=== PATIENT | female | born 1975 | race Caucasian/White ===

== ENCOUNTER 2023-06-12 07:55 | Outpatient (OUT) | payer BC, SELFPAY ==
--- NOTE | 2023-06-12 07:57 | MM_ITS ---
Patient Name: DAVID AGUDELO MR#: [id number] : 1975 Exam Date: 06/12/2023 Ordering Doctor: DR RAFA VERA RADIOLOGY REPORT PROCEDURE: MM TOMOSYNTHESIS SCREENING BI COMPARISON: MG MAMM SCREEN 3D ANTONIO CAD, 05/07/2022. MG MAMM SCREEN 3D ANTONIO CAD, 05/01/2021. INDICATIONS: Screening Calculator Name NCI Breast Cancer Risk Assessment Tool 5 Year Breast Cancer Risk Not Reported. Lifetime Breast Cancer Risk Not Reported. Personal Breast Cancer No Personal Ovarian Cancer No Treatments None Family Cancers None LOCATION: [facility] BREAST COMPOSITION: Heterogeneously dense,which may obscure small masses. FINDINGS: DIAGNOSTIC CATEGORY 1--NEGATIVE. NO CHANGE FROM COMPARISON ASSESSMENT. Scattered benign-appearing lymph nodes are present. RIGHT BREAST: No significant suspicious finding. LEFT BREAST: No significant suspicious finding. RECOMMENDATIONS: ROUTINE MAMMOGRAM AND CLINICAL EVALUATION IN 12 MONTHS. PLEASE NOTE: A NORMAL MAMMOGRAM DOES NOT EXCLUDE THE POSSIBILITY OF BREAST CANCER. A CLINICALLY SUSPICIOUS PALPABLE LUMP SHOULD BE BIOPSIED. Dictated by: Akira Waddell MD on 06/12/2023 at 11:14 Approved by: Akira Waddell MD on 06/12/2023 at 11:15
== END 2023-06-12 07:56 | disposition home or self-care (01) ==
LOC: MAMMO 07:55
PROVIDERS: PCP Family Medicine; Visit Provider Obstetrics & Gynecology
DX: Z12.31 Encounter for screening mammogram for malignant neoplasm of breast (principal)
CPT/HCPCS: 77063; 77067

== ENCOUNTER 2024-07-27 07:59 | Outpatient (OUT) | payer BC, SELFPAY ==
--- NOTE | 2024-07-27 08:03 | MM_ITS ---
Patient Name: DAVID AGUDELO MR#: [id number] : 1975 Exam Date: 07/27/2024 Ordering Doctor: DR RAFA VERA RADIOLOGY REPORT PROCEDURE: MM TOMOSYNTHESIS SCREENING BI COMPARISON: MM TOMOSYNTHESIS SCREENING BI, 06/12/2023. MG MAMM SCREEN 3D ANTONIO CAD, 05/07/2022. MG MAMM SCREEN 3D ANTONIO CAD, 05/01/2021. MG MAMM SCREEN ANTONIO W CAD, 02/08/2018. INDICATIONS: Screening Calculator Name NCI Breast Cancer Risk Assessment Tool 5 Year Breast Cancer Risk Not Reported. Lifetime Breast Cancer Risk Not Reported. Personal Breast Cancer No Personal Ovarian Cancer No Treatments None Family Cancers None LOCATION: [facility] BREAST COMPOSITION: The breasts are heterogeneously dense,which may obscure small masses. FINDINGS: A focal asymmetry right breast in the anterior depth. Focal asymmetry of the left breast study posterior depth. DIAGNOSTIC CATEGORY 0--INCOMPLETE: NEED ADDITIONAL IMAGING EVALUATION. RECOMMENDATIONS: ADDITIONAL MAMMOGRAPHIC VIEWS REQUIRED: BILATERAL BREASTS - spot compression ULTRASOUND: BILATERAL BREASTS PLEASE NOTE: A NORMAL MAMMOGRAM DOES NOT EXCLUDE THE POSSIBILITY OF BREAST CANCER. A CLINICALLY SUSPICIOUS PALPABLE LUMP SHOULD BE BIOPSIED. Dictated by: Genaro Mccracken DO on 07/28/2024 at 07:44 Approved by: Genaro Mccracken DO on 07/28/2024 at 07:48
--- OUTSIDE RECORDS SUMMARY | 2024-07-27 08:17 | XMS_ITS | CCD ---
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 Name Role Phone Glenda Stewart Unavailable JOSI CALABRESE Attending Unavailable PAT, DR MCARTHUR Primary Care Unavailable KARASIK, DR KAPOOR Admitting Unavailable KARASIK, DR KAPOOR Consulting Unavailable KARASIK, DR KAPOOR Attending Unavailable ZIEBER, DR LEE Mckeon Consulting Unavailable PAT, DR MCARTHUR Primary Care Unavailable KARASIK, DR KAPOOR Admitting Unavailable KARASIK, DR KAPOOR Consulting Unavailable KARASIK, DR KAPOOR Attending Unavailable NO FAMILY, PHYSICIAN Primary Care Provider Unava ilable Hector Bui DO Attending Provider Hector Bui Jr Attending Unavailable Hector Bui Jr Admitting Unavailable NO FAMILY, PHYSICIAN Primary Care Unavailable RAFA VERA Attending Unavailable BRANDON CRUZ Attending Unavailable Unavailable Unavailable Unavailable Allergies Allergy Classification Reported Allergen(s) Allergy Type Date of Onset Reaction(s) Facility (1 source) Chg scrub; Translations: [Chg scrub] Propensity to adverse reactions (disorder) [facility] Repository (1 source) Steri-Strips; Translations: [Steri-Strips] Propensity to adverse reactions (disorder) [facility] Repository Medications Current Medications Medication Drug Class(es) Dates Sig (Normalized) Sig (Original) Ethinyl Estradiol / norgestimate (1 source) Progestin, Estrogen Ortho Tri-Cy clen Lo Active Loratadine (1 source) Claritin Active nitrofurantoin, macrocrystals 25 mg / nitrofurantoin, monohydrate 75 mg oral capsule (1 source) Nitrofuran Antibacterial Start: 08-03-2021 take 1 capsule by mouth every twelve hours Macrobid 100 MG 1 cap(s) Orally bid for 5 day(s) Aug, Active phenazopyridine hydrochloride 200 mg oral tablet (1 source) Start: 08-03-2021 take 1 tablet by mouth every eight hours Pyridium 200 MG 1 tablet after meals Orally Three times a day for 2 day(s) Aug, Active Completed/Discontinued Medications Medication Drug Class(es) Dates Sig (Normalized) Sig (Original) doxycycline monohydrate 100 mg oral capsule (1 source) Tetracycline-class Drug Start: 11-08-2019 take 1 capsule by mouth every twelve hours Doxycycline Monohydrate 100 MG 1 capsule Orally every 12 hrs for 7 days Nov, Not-Taking Triamcinolone (1 source) Corticosteroid Start: 04-28-2020 KENALOG - 10 mg Apr, 40 mg Problems Active Problems Problem Classification Problem Date Documented Date Episodic/Chronic Immunizations and screening for infectious disease (1 source) Encounter for screening for human papillomavirus (HPV); Translations: [ENC SCREENING HUMAN PAPILLOMAVIRUS] Onset: 05-11-2022 Episodic Other screening for suspected conditions (not mental disorders or infectious disease) (8 sources) Encounter for screening for malignant neoplasm of cervix; Translations: [Encounter for screening mammogram for malignant neoplasm of breast] Onset: 05-07-2022 Episodic Other upper respiratory infections (2 sources) Acute upper respiratory infection; Translations: [Pharyngotonsillitis] Episodic Past or Other Problems Problem Classification Problem Date Documented Da te Episodic/Chronic Genitourinary symptoms and ill-defined conditions (2 sources) Dysuria; Translations: [Hematuria, unspecified] Onset: 08-03-2021 Resolved: 08-03-2021 Episodic Urinary tract infections (1 source) Urinary tract infection, site not specified Onset: 08-03-2021 Resolved: 08-03-2021 Episodic Results Test Name Value Interpretation Reference Range Facility X-ray reportOrdered By: Ra Palafox on 05-19-2024 Study report [facility] [address] [address] XRay Report Signed Patient: David Acosta MR#: [id number] : 1975 Acct:[id number] Age/Sex: 48 / F ADM Date: 5 Loc: CO Room: Type: REG REF Attending Dr: Hector Bui Jr DO Copies to: Hector Bui DO~ Ordering Provider: Hector Bui DO Date of Service: 05/19/24 XR/XR chest 2V*: emp phys Chest 2 views CLINICAL HISTORY: Employment physical. COMPARISON: Chest 07/23/2021 FINDINGS: Heart normal size. Lungs are clear. No free air. XR/XR chest 2V* IMPRESSION: NO ACUTE CARDIOPULMONARY ABNORMALITY. Impression dictated by: Simon Palafox Jr., D.OObdulia05/19/2024 3:31 PM Dictation Location: RADIO-PC-22 Transcribed By: [facility] 05/19/24 153 Dictated By: Simon Palafox Jr, DO 05/19/241530 Signed By: 05/19/24 1531 [facility] XR chest 2V*on 05-19-2024 XR chest 2V* [facility] [address] XRay Report Signed Patient: David Acosta MR#: [id number] : 1975 Acct:[id number] Age/Sex: 48 / F ADM Date: 05/19/24 Loc: CO Room: Type: REG REF Attending Dr: Hector Bui Jr DO Copies to: Hector Bui DO Ordering Provider: Hector Bui DO Date of Service: 05/19/24 XR/XR chest 2V*: emp phys Chest 2 views CLINICAL HISTORY: Employment physical. COMPARISON: Chest 07/23/2021 FINDINGS: Heart normal size. Lungs are clear. No free air. XR/XR chest 2V* IMPRESSION: NO ACUTE CARDIOPULMONARY ABNORMALITY. Impression dictated by: Tanner Vickers Jr..O.05/19/2024 3:31 PM Dictation Location: RADIO-PC-22 Transcribed By: [facility] 05/19/24 153 Dictated By: Simon Palafox Jr, DO 05/19/24 153 Signed By: 05/19/24 1531 Normal [facility] PAP ACOG PANEL 2: 30 to 65on 05-15-2022 . . Normal [facility] Comment on above: Result Comment: Perf ormed at: WB Performed By: #### [id number] #### [facility] [address] [place] [address] Dr. Manda Shabazz Age Gdln ACOG Testing 30-65 [facility] Comment on above: Performed By: #### [id number] #### [facility] [address] [place] [address] Dr. Manda Shabazz DIAGNOSIS: Comment Normal [facility] Comment on above: Result Comment: NEGA TIVE FOR INTRAEPITHELIAL LESION OR MALIGNANCY. Performed at: WB Performed By: #### [id number] #### [facility] [address] [place] [address] Dr. Manda Shabazz HPV Aptima Negative Normal Negative [facility] Comment on above: Result Comment: This nucleic acid amplification test detects fourteen high-risk HPV types (16,18,31,33,35,39,45,51,52,56,58,59,66,68) without differentiation. Performed at: =G Performed By: #### 4 [id number] #### [facility] [address] [address] [address] Manda Shabazz HPV Genotype Reflex Comment Normal [facility] Comment on above: Result Comment: Crit eria not met, HPV Genotype not performed. Performed at: WB Performed By: #### [id number] #### [facility] [address] [place] [address] Dr. Manda Shabazz Methodology: Comment Normal [facility] Comment on above: Result Comment: This liquid based ThinPrep(R) pap test was screened with the use of an image guided system. Performed at: WB Performed By: #### [id number] #### [facility] [address] [place] [address] Dr. Manda Shabazz Note: Comment Normal [facility] Comment on above: Result Comment: The Pap smear is a screening test designed to aid in the detection of premalignant and malignant conditions of the uterine cervix. It is not a diagnostic procedure and should not be used as the sole means of detecting cervical cancer. Both false-positive and false-negative reports do occur. . Performed at: WB Performed By: #### [id number] #### [facility] [address] [address] [address] Manda Shabazz Performed by: Comment Normal [facility] Comment on above: Result Comment: Rashawn Oliveros Drum Barker Operator (ASCP) Performed at: WB Performed By: #### [id number] #### [facility] [address] [address] [address] Manda Shabazz Specimen adequacy: Comment Normal [facility] Comment on above: Result Comment: Sati sfactory for evaluation. Endocervical and/or squamous metaplastic cells (endocervical component) are present. Performed at: WB Performed By: #### [id number] #### [facility] [address] [address] [address] Manda Shabazz MG MAMM SCREEN 3D ANTONIO CADon 05-07-2022 MG MAMM SCREEN 3D ANTONIO CAD Patient: DAVID ACOSTA Exam Date: 05/07/2022 : 1975 Gender:F Ordering : DR ANTWON AYON . Admission #: [id number] Family : Order #: [id number] CLICK HERE TO VIEW EXAM RADIOLOGY REPORT PROCEDURE: MAMMOGRAM SCREENING 3D BILATERAL CAD COMPARISON: MG MAMM SCREEN ANTONIO W CAD, 04/23/2020. MG MAMM SCREEN ANTONIO W CAD, 04/13/2019. DIGITIZED_MAMMO, 02/03/2007. MG MAMM SCREEN 3D ANTONIO CAD, 05/01/2021. INDICATIONS: Screening mammography Calculator Name NCI Breast Cancer Risk Assessment Tool 5 Year Breast Cancer Risk Not Reported. Lifetime Breast Cancer Risk Not Reported. Personal Breast Cancer No Personal Ovarian Cancer No Treatments None Family Cancers None LOCATION: The [facility] BREAST COMPOSITION: Heterogeneously dense,which may obscure small masses. FINDINGS: DIAGNOSTIC CATEGORY 1--NEGATIVE. RIGHT BREAST: No significant suspicious finding. No significant change has occurred. LEFT BREAST: No significant suspicious finding. No significant change has occurred. RECOMMENDATIONS: ROUTINE MAMMOGRAM AND CLINICAL EVALUATION IN 12 MONTHS. PLEASE NOTE: A NORMAL MAMMOGRAM DOES NOT EXCLUDE THE POSSIBILITY OF BREAST CANCER. A CLINICALLY SUSPICIOUS PALPABLE LUMP SHOULD BE BIOPSIED. Dictated by: Lee Richards M.D. on 05/08/2022 at 08:36 Approved by: Lee Richards M.D. on 05/08/2022 at 08:38 Normal [facility] Reminderson 03-06-2022 Reminders - From: Vita Galloway To: [facility] Clinical; Sent: 09/25/2021 11:11:44 EDT Show up: 10/02/2021 11:11:00 EDT Subject: renal US Reminder/Recall Patient to have this done at [facility], they will schedule patient. please show VINH results Looked in [place] Renal US not completed yet. [facility] has called and LM, last message that was left for pt was in September. CS will give pt another call today to schedule the renal us From: Yoselin Irwin MA ( - Clinical) To: JOSI CALABRESE PA-C; Sent: 03/06/2022 14:05:54 EDT Show up: 03/06/2022 14:05:00 EDT Subject: RE: renal US Still no US. Did call pt and leave message. Pt has no follow up at this time. OK to close this message? yes. Normal [facility] Consultation Noteon 09-28-19 Consultation Note [id number] .[id number]:127 Normal [facility] Formson 09-27-2021 Forms [id number] .[id number]:127 Normal [facility] Patient Educationon 09-26-19 22 Patient Education Obstetrics and Gynecology Urinary Tract Infection, Adult A urinary tract infection (UTI) is an infection of any part of the urinary tract. The urinary tract includes the kidneys, ureters, bladder, and urethra. These organs make, store, and get rid of urine in the body. Your health care provider may use other names to describe the infection. An upper UTI affects the ureters and kidneys (pyelonephritis). A lower UTI affects the bladder (cystitis) and urethra (urethritis). What are the causes? Most urinary tract infections are caused by bacteria in your genital area, around the entrance to your urinary tract (urethra). These bacteria grow and cause inflammation of your urinary tract. What increases the risk? You are more likely to develop this condition if: ? You have a urinary catheter that stays in place (indwelling). ? You are not able to control when you urinate or have a bowel movement (you have incontinence). ? You are female and you: ? Use a spermicide or diaphragm for control. ? Have low estrogen levels. ? Are . ? You have certain genes that increase your risk (genetics). ? You are sexually active. ? You take antibiotic medicines. ? You have a condition that causes your flow of urine to slow down, such as: ? An enlarged prostate, if you are male. ? Blockage in your urethra (stricture). ? A kidney stone. ? A nerve condition that affects your bladder control (neurogenic bladder). ? Not getting enough to drink, or not urinating often. ? You have certain medical conditions, such as: ? Diabetes. ? A weak disease-fighting system (immunesystem). ? Sickle cell disease. ? Gout. ? Spinal cord injury. What are the signs or symptoms? Symptoms of this condition include: ? Needing to urinate right away (urgently). ? Frequent urination or passing small amounts of urine frequently. ? Pain or burning with urination. ? Blood in the urine. ? Urine that smells bad or unusual. ? Trouble urinating. ? Cloudy urine. ? Vaginal discharge, if you are female. ? Pain in the abdomen or the lower back. You may also have: ? Vomiting or a decreased appetite. ? Confusion. ? Irritability or tiredness. ? A fever. ? Diarrhea. The first symptom in older adults may be confusion. In some cases, they may not have any symptoms until the infection has worsened. How is this diagnosed? This condition is diagnosed based on your medical history and a physical exam. You may also have other tests, including: ? Urine tests. ? Blood tests. ? Tests for sexually transmitted infections (STIs). If you have had more than one UTI, a cystoscopy or imaging studies may be done to determine the cause of the infections. How is this treated? Treatment for this condition includes: ? Antibiotic medicine. ? Nigm-kti-agenwdb medicines to treat discomfort. ? Drinking enough water to stay hydrated. If you have frequent infections or have other conditions such as a kidney stone, you may need to see a health care provider who specializes in the urinary tract (urologist). In rare cases, urinary tract infections can cause sepsis. Sepsis is a life-threatening condition that occurs when the body responds to an infection. Sepsis is treated in the hospital with IV antibiotics, fluids, and other medicines. Follow these instructions at home: Medicines ? Take nknz-ynu-hhtiyjc and prescription medicines only as told by your health care provider. ? If you were prescribed an antibiotic medicine, take it as told by your health care provider. Do not stop using the antibiotic even if you start to feel better. General instructions ? Make sure you: ? Empty your bladder often and completely. Do not hold urine for long periods of time. ? Empty your bladder after sex. ? Wipe from front to back after a bowel movement if you are female. Use each tissue one time when you wipe. ? Drink enough fluid to keep your urine pale yellow. ? Keep all follow-up visits as told by your health care provider. This is important. Contact a health care provider if: ? Your symptoms do not get better after 1?2 days. ? Your symptoms go away and then return. Get help right away if you have: ? Severe pain in your back or your lower abdomen. ? A fever. ? Nausea or vomiting. Summary ? A urinary tract infection (UTI) is an infection of any part of the urinary tract, which includes the kidneys, ureters, bladder, and urethra. ? Most urinary tract infections are caused by bacteria in your genital area, around the entrance to your urinary tract (urethra). ? Treatment for this condition often includes antibiotic medicines. ? If you were prescribed an antibiotic medicine, take it as told by your health care provider. Do not stop using the antibiotic even if you start to feel better. ? Keep all follow-up visits as told by your health care provider. This is important. This in (more content not included)... Normal [facility] Urology Office/Clinic Noteon 09-25-2021 Urology Office/Clinic Note Chief Complaint Pt is here for recurrent UTI HPI Staff Ramon is a 46 y.o. female new patient here for recurrent UTI. Referred by Aleyda Villegas. Urine culture done on 02/06/21 was positive for ESBL E-Coli. Pt had 2 additional infections btwn Apr-August which were treated at urgent care, early August was treated with Macrobid, sx returned shortly thereafter and she saw PCP. Urine culture done on 08/23/21 positive for E-Coli, treated with Augmentin. prior to this pt was getting UTIs about once or twice a year for her adult life. no UTIs as a kid. does own a hot tub and uses it often. does take baths often. no hx kidney stones. no changes to sex life. recently started taking probiotics and d-mannose, about a month ago. currently asymptomatic. Dysuria: denies Incomplete bladder emptying: denies Hematuria: denies Frequency: yes every 2 hours Urgency: mild Nocturia: 1x on occasion Stream: steady stream Leaking: denies Post void dripping: denies Wearing pads/ Depends: denies Urge incontinence: denies Stress incontinence: denies Incontinence without Sensory Awareness: denies Abdominal pain: denies Flank pain: denies Sexual complaints: _ History of Present Illness staff hpi adjusted. Review of Systems PHQ Score Initial Depression Screen Score: 0 no fever, chills, malaise, myalgia. no rash/lesions. no chest pain, palpitations, or SOB. no abdominal pain, nausea, vomiting. no unilateral calf swelling, redness, pain Physical Exam Vitals & Measurements HR: 68(Peripheral) BP: 134/84 HT: 162 cm HT: 162.0 cm WT: 72 kg WT: 72.0 kg BMI: 27.43 General: nontoxic, NAD Mouth: moist mucosa Lungs: normal respiratory effort Cardio: regular rate, good distal perfusion Abdomen: nondistended, no suprapubic distention or tenderness, no CVA tenderness Neurologic: Grossly normal Skin: No rashes or suspicious lesions Assessment/Plan UA completed in office today shows no microhematuria or signs of infection. 1. Recurrent UTI (N39.0: Urinary tract infection, site not specified) Today we discussed the following methods to decrease frequency of UTIs: 1) increase fluids 2) double voids (encouraged to lean forward, apply gentle pressure on the bladder, and standing then sitting again) - unable to perform PVR today in office as machine is out of service 3) I discussed that there is evidence that herbal supplements may help - cranberry, probiotics, and d-mannose - pt will add cranberry to her regimen 4) proper hygiene habits (wipe front to back every time, avoid baths & hot tubs, avoid any scented STONE SETTER APPRENTICE products, urinate after sexual activity, etc) 5) check KUB/KENYON to ensure no kidney stones contributing to infection - ordered/scheduled, will call pt with results pt will call our office next time she develops sx. will culture and treat. monitor frequency of UTIs. if continue despite above measures, next steps would include cysto/possible UD and suppressive abx. Ordered: E&M of New Patient Moderate 45-59 Min 84417 Urnls Dip Stick Auto w/o Microscopy POC 15802 US Renal Total time spent reviewing previous notes/results/externa l documents, preparing the chart, conducting the encounter with the patient and family, ordering tests/medications, and documenting the encounter was 50 minutes. f/u PRN Follow-up With When Contact Information JOSI CALABRESE PA-C, URL Only if needed [address] [place] [address] Business (1) Additional Instructions: Patient Education Urinary Tract Infection, Adult Problem List/Past Medical History Ongoing Recurrent UTI Historical Knee pain Tear of medial meniscus of knee Procedure/Surgical History section X2, H/O: tubal ligation, Tonsillectomy. Medications Claritin 5 mg oral tablet, chewable, Chewed, Daily Probiotic + Colostrum, Oral, Daily Turmeric, Oral, Daily Vitamin B Complex oral capsule, Oral, Daily Vitamin D, Oral, qWeek Allergies Chg scrub (rash) Steri-Strips (Blisters) Social History Alcohol - Low Risk, 12/13/2010 Substance Abuse - Denies Substance Abuse, 12/13/2010 Tobacco - Denies Tobacco Use, 12/13/2010 Never (less than 100 in lifetime) Tobacco Use:. Never Smokeless Tobacco Use:., 09/25/2021 Family History Arthritis: Father. Asthma: Brother. Heart disease: Father. Hypertension: Father. Kidney stone: Father. Lab Results Ambulatory Point of Care Results Bilirubin Urine Dipstick: Negative (09/25/21 10:15:00) Blood Urine Dipstick: Negative (09/25/21 10:15:00) Glucose Urine Dipstick: Negative (09/25/21 10:15:00) Ketones Urine Dipstick: Negative (09/25/21 10:15:00) Leukocytes Urine Dipstick: Negative (09/25/21 10:15:00) Nitrite Urine Dipstick: Negative (09/25/21 10:15:00) Protein Urine Dipstick: Negative (09/25/21 10:15:00) Specific [place] Urine Dipstick: 1.015 (09/25/21 10:15:00) Urine Appearance Urine Dipstick: Clear (09/25/21 10:15:00) Urine Color Urine Dipstick: Yellow (09/25 (more content not included)... Normal [facility] Comment on above: Result Comment: Elec tronically Signed By: BHARATI PADILLA, JOSI Gilbert\.dagoberto\Date and Time Signed: 09/25/21 12:14 EDT Q - CULTURE,URINE,ROUTINEon 08-23-2021 CULTURE, URINE, ROUTINE SEE NOTE Abnormal [facility] [employer] Manager Comment on above: Order Comment: [facility] Testing performed at: [facility] [place], [address], [address] [place], [address], Finishing Department Supervisor: Miky Copeland MD [facility] Collection Date/Time: [facility] Results Received Date/Time: [facility] Reported Date/Time: Result Comment: CULT URE, URINE, ROUTINE Micro Number: [id number] Test Status: Final Specimen Source: Urine Specimen Quality: Adequate Result: 10,000-49,000 CFU/mL of Escherichia coli E.coli INT DAILY AMOX/CLAVULANATE S 4 AMPICILLIN R >=32 AMP/SULBACTAM I 16 CEFAZOLIN NR <=4 2 CEFEPIME S <=1 CEFTRIAXONE S <=1 CIPROFLOXACIN S <=0.25 ERTAPENEM S <=0.5 GENTAMICIN S <=1 IMIPENEM S <=0.25 LEVOFLOXACIN S <=0.12 NITROFURANTOIN S <=16 PIP/TAZOBACTAM S <=4 TOBRAMYCIN S <=1 TRIMETHOPRIM/SULFA S <=20 S=Susceptible I=Intermediate R=Resistant * = Not Tested NR = Not Reported NN = See Therapy Comments THERAPY COMMENTS Note 1: For infections other than uncomplicated UTI caused by E. coli, K. pneumoniae or P. mirabilis: Cefazolin is resistant if DAILY > or = 8 mcg/mL. (Distinguishing susceptible versus intermediate for isolates with DAILY < or = 4 mcg/mL requires additional testing.) Note 2: For uncomplicated UTI caused by E. coli, K. pneumoniae or P. mirabilis: Cefazolin is susceptible if DAILY <32 mcg/mL and predicts susceptible to the oral agents cefaclor, cefdinir, cefpodoxime, cefprozil, cefuroxime, cephalexin and loracarbef. Performed By: #### 6 [id number] #### [facility] [address] [place] [address] Urinalysis - AUTOMATEDon Appearance (U) clear [facility] Other Bilirubin Ql (U) Negative [facility] Other Color (U) yellwo [facility] Other Glucose Ql (U) Negative [facility] Other Hemoglobin Ql (U) moderate [facility] Other Ketones Ql (U) Negative [facility] Other Leukocyte esterase Test strip Ql (U) moderate [facility] Other Nitrite Ql (U) Negative [facility] Other pH (U) 7.5 [pH] [facility] Other Protein Ql (U) >300 [facility] Other Specific gravity (U) [Rel density] 1.025 [facility] Other Urobilinogen (U) [Mass/Vol] 0.2 mg/dL [facility] Other Urinalysis - AUTOMATED [facility] Other Vital Signs Date Time Vital Sign Value Performing Clinician Facility 08-03-2021 10:00-0400 Body height 163.83 cm Glenda Stewart Other [facility] Other 08-03-2021 10:00-0400 Body temperature 97.2 [degF] Glenda Stewart Other [facility] Other 08-03-2021 10:00-0400 SaO2% (BldA) [Mass fraction] 99 % Glenda Stewart Other [facility] Other Encounters Encounter Date Encounter Type Care Provider Facility Start: 07-18-2024 End: 07-18-2024 ambulatory RAFA VERA Not Available Start: 05-19-2024 End: 05-19-2024 Departed Referred PHYSICIAN [facility] [address] Work Phone: Start: 05-19-2024 End: 05-19-2024 ambulatory PHYSICIAN [facility] Work Phone: Start: 11-17-2023 End: 11-17-2023 ambulatory BRANDON CRUZ Not Available Start: 05-09-2022 End: 05-09-[address] LYUBOV STEWART Facility:[facility] Start: 05-07-2022 End: 05-08-[address] LYUBOV STEWART Facility:[facility] Start: 09-25-2021 End: 09-26-2021 ambulatory JOSI CALABRESE Facility:[facility] [place] Start: 08-27-2021 ambulatory JOSI CALABRESE Facility :[facility] Start: 08-03-2021 End: 08-03-2021 ambulatory Glenda Stewart Other [facility] Other Start: 08-03-2021 Office outpatient visit 25 minutes Glenda Stewart [facility] Procedures Date Procedure Procedure Detail Performing Clinician Start: 05-19-2024 Plain chest X-ray [facility] NO FAMILY Immunizations Immunization Date Immunization Notes Care Provider Fa silverleonardo 11-08-2019 tetanus toxoid, redu bhargavi diphtheria toxoid, and acellular pertussis vaccine, adsorbed Glenda Stewart Other [facility] Payers Date Payer Category Payer Self-pay [id number] 2010 Unknown [id number] 1977 Unknown [id number] 2.16.8 [id number] 1977 Unknown [id number] 2.16.8 [id number] 1977 Unknown [id number] 2.16.8 [id number] 1977 Unknown [id number] 2.16.84 [id number] 1977 Unknown [id number] 2.16.84 [id number] 1977 Unknown [id number] 2.16.84 [id number] 1977 Unknown [id number] 2.16.84 [id number] 1959 Unknown [id number] Unknown [id number] 2.16.8 [id number] Social History Date Type Detail Facility Tobacco smoking status NHIS Unknown if ever smoked [facility] Start: 1975 Sex Assigned At Female [facility] Sex Assigned At Sex Assigned At Bir th [facility] Other Start: 03-18-2017 Tobacco smoking status NHIS Never smoked tobacco (finding) [facility] Start: 05-20-2024 Sex Female (finding) [facility] Goals Date Patient Goal Desired Activity /State Evaluation note 08-03-2021 Note Date & Type Note Facility 08-03-2021 Evaluation note Encounter Date Diagnosis Assessment Notes Aug, Dysuria (ICD-10 - R30.0) Aug, Urinary tract infection, site not specified (ICD-10 - N39.0) Plenty fluids, get plenty of rest. Take the Macrobid and the Pyridium as prescribed until gone. Follow-up with your family physician if no improvement in 2 to 3 days Aug, Hematuria, unspecified (ICD-10 - R31.9) [facility] Other Evaluation note Note Date & Type Note Facility Evaluation note No assessment information availa ble [facility] Work Phone: History general Narrative - Reported Note Date & Type Note Facility History general Narrative - Reported Type Medical History rt knee injury Surgical History knee surgery Surgical History D & C Surgical History c-sections x2 Hospitalization History see above [facility] Other Assessments No Assessments Information Available Summary Purpose Family History No Family History Records Found Relationship Condition Age at Onset Recorded Date/T jv grandparent Unknown Advance Directives No Advanced Directives Records Found Advance Directive Response Recorded Date/ Time Advance Directives No December 25, 2018 7:01pm Chief Complaint and Reason for Visit Chief Complaint Admit Date cxr May 19, 2024 2 :00pm Additional Source Comments INFORMATION SOURCE (unrecogn ized section and content) DATE CREATED AUTHOR 08/27/2021 [facility] DATE CREATED AUTHOR AUTHOR'S ORGANIZ ATION 03/07/2022 Sanchez Robson [facility] DATE CREATED AUTHOR AUTHOR'S ORGANIZ ATION 05/15/2022 [facility] DATE CREATED AUTHOR AUTHOR'S ORGANIZ ATION 05/22/2024 [facility] DATE CREATED AUTHOR AUTHOR'S ORGANIZ ATION 07/20/2024 [facility] EPIC REASON FOR VISIT (unrecogniz ed section and content) POSS UTI Care Teams (unrecognized sec tion and content) Team Status: Active Member Role Status Dates PHYSICIAN NO FAMILY Primary Care Provider Active Team Status: Inactive Member Role Status Dates PHYSICIAN NO FAMILY Primary Care Provider Active Start: May 19, 2024 End: May 19, 2024 Hector Bui Jr, DO Attending Provider Active S tart: May 19, 2024 End: May 19, 2024 Goals (unrecognized section and content) Goals may be documented in a n alternate section FOR RECORDS PERTAINING TO PATIENTS WHO ARE OR HAVE BEEN ENROLLED IN A CHEMICAL DEPENDENCY/SUBSTANCEABUSE PROGRAM, SOME INFORMATION MAY BE OMITTED. This clinical summary was aggregated from multiple sources. Caution should be exercised in using it in the provision of clinical care. This summary normalizes information from multiple sources, and as a consequence, information in this document may materially change the coding, format and clinical context of patient data. In addition, data may be omitted in some cases. CLINICAL DECISIONS SHOULD BE BASED ON THE PRIMARY CLINICAL RECORDS. [facility] [employer] [facility]. provides no warranty or guarantee of the accuracy or completeness of information in this document.
== END 2024-07-27 08:00 | disposition home or self-care (01) ==
LOC: MAMMO 07:59
PROVIDERS: PCP Family Medicine; Visit Provider Obstetrics & Gynecology
DX: Z12.31 Encounter for screening mammogram for malignant neoplasm of breast (principal); R92.8 Other abnormal and inconclusive findings on diagnostic imaging of breast
CPT/HCPCS: 77063; 77067